=== PATIENT | female | born 1955 | race Caucasian/White ===

== ENCOUNTER → 2024-06-15 | Day surgery (SDC) | payer MEDICARE ==
[~2024-06-15] MED LIST: ACETAMINOPHEN-1 EAC3 PO; ACIPHEX20 MG PO; ALLEGRA-D 12 H1 EACH PO; ALOE VERA PO; ASPERCREME LI76.5 GM TOP; ATENOLOL25 MG PO; BIOTIN2500 MCG PO; CALCIUM PO; CELEBREX200 MG PO; COPPER2 MG PO; CRANBERRY200 MG PO; FENTANYL CITRATE/PF 100MCG/2 ML INJ ONE; GLIPIZIDE5 MG PO; GLYCOPYRROLATE INJ 0.2 MG/ML VIAL ONE; IMODIUM A-D2 M2 PO; LACTAID3000 UNI1 PO; LIDOCAINE HCL 2% LOCAL INJ 5 ML SDV VIAL INJ ONE; MAG PO; MONTELUKAST SOD10 MG PO; MULTI-VITAMIN1 EACH PO; ONDANSETRON HCL INJ 2MG/ML 2ML 2 MG/ML VIAL ONE; OZEMPIC1 MG/0.71 PO; PROPOFOL IV EMULSION 10 MG/ML 20 ML VIAL ONE; TRESIBA100 UNIT/1 SQ; VITAMIN B121000 MCG PO; VITAMIN C PO; VITAMIN D325 MCG PO; VITAMIN E400 UNI1 PO; ZETIA10 MG PO; ZINC PO; [UNRECOGNIZED DRUG - OTHER]; [UNRECOGNIZED DRUG - OTHER] PO; [UNRECOGNIZED DRUG - OTHER] PO
[2024-06-15 10:58] LABS: BASOPHILS % 0.5 % (0.0-1.0); EOSINOPHILS # (AUTO) 0.4 (0.0-0.4); EOSINOPHILS % 4.2 % (0.0-6.0); HEMATOCRIT 46.6 % (34.2-44.1); HEMOGLOBIN 14.5 g/dL (12.0-16.0); LYMPHOCYTES # (AUTO) 1.9 (1.0-3.2); LYMPHOCYTES % 22.1 % (18.0-39.1); MEAN CORPUSCULAR HEMOGLOBIN 26.8 pg (28-32); MEAN CORPUSCULAR HGB CONC 31.1 g/dL (31-35); MEAN CORPUSCULAR VOLUME 86.1 fL (81-99); MONOCYTES % 11.7 % (4.4-11.3); NEUTROPHILS # (AUTO) 5.1 (2.1-6.9); NEUTROPHILS % 61.1 % (38.7-80.0); PLATELET COUNT 288 x10e3/uL (140-360); RED BLOOD COUNT 5.41 x10e6/uL (3.6-5.1); RED CELL DISTRIBUTION WIDTH 15.9 % (11.7-14.4)
[2024-06-15] MEDS: LACTATED RINGER'S 1,000 ML ONE (13:07)
[2024-06-15 13:18] VITALS: TEMP 97.5
[2024-06-15 13:45] VITALS: BP 122/71; PULSE 87; RESP 18; O2SAT 98
== END | disposition home or self-care (01) ==
LOC: OR 09:00
PROVIDERS: ATTEND Internal Medicine Gastroenterology
DX: K59.00 Constipation, unspecified (principal); K57.30 Diverticulosis of large intestine without perforation or abscess without bleeding; K64.8 Other hemorrhoids; K21.9 Gastro-esophageal reflux disease without esophagitis; J45.909 Unspecified asthma, uncomplicated; E78.5 Hyperlipidemia, unspecified; E66.01 Morbid (severe) obesity due to excess calories; E20.9 Hypoparathyroidism, unspecified; Z88.0 Allergy status to penicillin; Z88.2 Allergy status to sulfonamides; Z88.1 Allergy status to other antibiotic agents; Z91.040 Latex allergy status; Z79.84 Long term (current) use of oral hypoglycemic drugs; Z79.85 Long-term (current) use of injectable non-insulin antidiabetic drugs; Z79.4 Long term (current) use of insulin; Z79.899 Other long term (current) drug therapy; Z68.41 Body mass index [BMI] 40.0-44.9, adult
CPT/HCPCS: 36415; 45380; 85025; 88305; 93005; J2001; J2405; J2704; J3010; J7121